=== PATIENT | female | born 1985 | race Hispanic/Latino ===

== ENCOUNTER 2018-04-22 08:38 | Emergency (ER) | payer SELFPAY ==
[2018-04-22 09:29] LABS: #Eosinphils 0.2 thou/uL (0.0-0.7); #Lymphocytes 1.5 thou/uL (1.20-3.40); #Monocytes 0.4 thou/uL (0.11-0.59); #Neutrophils 7.3 thou/uL (1.40-6.50); %Basophils 0.3 % (0.0-1.0); %Lymphocytes 16.2 % (21.0-51.0); %Monocytes 4.5 % (0.0-10.0); Hemoglobin 12.6 g/dL (12.0-16.0); Mean Corpuscular HGB CONC 34.4 g/dL (32.0-36.0); Mean Corpuscular Hemoglobin 31.7 pg (27.0-31.0); Mean Corpuscular Volume 92.4 fL (78.0-98.0); Mean Platelet Volume 7.8 fL (7.4-10.4); Platelet Count 274 thou/uL (130-400); RBC Distribution Width 11.5 % (11.5-14.5); Red Blood Cell (RBC) Count 3.97 mill/uL (4.20-5.40); White Blood Cell (WBC) Count 9.5 thou/uL (4.8-10.8)
[2018-04-22 09:47] LABS: Bilirubin Negative (Negative); Blood, Urine Small (Negative); Clarity CLEAR (Clear); Glucose, Urine (Dipstick) Negative (Negative); Leukocyte Negative (Negative); Nitrite Negative (Negative); Protein, Urine (Dipstick) Negative (Neg-Trace); Specific Gravity, Urine 1.004 (1.002-1.036); Urobilinogen 0.2 mg/dL (0.2-1.0)
[2018-04-22 09:50] LABS: Bacteria/HPF Rare-Few HPF (None Seen); Hyaline Casts/LPF 0-3 HYALINE CAST LPF (0-3 Hyaline); Pathc Cast-AUWi Flag 0.43 (0-2.49); RBC/HPF 0-3 HPF (0-3); Squamous Epithelial 0-3 HPF (0-3); WBC/HPF 0-3 HPF (0-3)
--- NOTE | 2018-04-22 11:38 | ULT ---
FIRST TRIMESTER OBSTETRIC ULTRASOUND: INDICATIONS: History of vaginal bleeding with a 6 to 8 week . COMPARISON: None. TECHNIQUE: Ellis-scale, color Doppler, M-mode, and spectral Doppler images were obtained of the pelvis. FINDINGS: The uterus measures 10.9 x 8.3 cm. There is a single live intrauterine gestation with a crown-rump length of 1.79 cm, giving an estimate d gestational age of 8 weeks 2 days. Yolk sac is identified, measuring 2.9 mm. Cardiac activity is noted, at 179 beats per minute. The average gestational age, based on biometrics, is 9 weeks 1 day with an estimated due date i s 11/24/2018. Clinical age is 10 weeks 1 day with an estimated due date of 11/17/2018. The right ovary measures 2.9 x 1.8 x 2.4 cm. The left ovary measures 2.6 x 1.4 x 1.8 cm. There is n ormal flow to both ovaries. No free fluid is evident. No star-gestational sac hemorrhage is evident . A small cyst is seen within the right ovary, measuring 1.2 cm. IMPRESSION: 1. Single live intrauterine gestation with size and dates as above. 2. Small cyst within the right ovary may reflect a corpus luteal cyst. POS: [facility]
== END 2018-04-22 10:25 | disposition home or self-care (01) ==
LOC: ERS 08:38
DX: O20.0 Threatened abortion (principal); Z3A.10 10 weeks gestation of pregnancy
CPT/HCPCS: 36415; 76856; 81003; 81015; 84702; 85025; 86900; 86901; 93976

== ENCOUNTER 2018-04-25 10:27 | Emergency (ER) | payer SELFPAY ==
[2018-04-25 13:43] LABS: #Eosinphils 0.2 thou/uL (0.0-0.7); #Lymphocytes 1.7 thou/uL (1.20-3.40); #Monocytes 0.4 thou/uL (0.11-0.59); #Neutrophils 5.9 thou/uL (1.40-6.50); %Basophils 0.5 % (0.0-1.0); %Lymphocytes 20.6 % (21.0-51.0); %Monocytes 4.6 % (0.0-10.0); %Neutrophils 72.4 % (42.0-75.0); Hemoglobin 12.1 g/dL (12.0-16.0); Mean Corpuscular HGB CONC 35.6 g/dL (32.0-36.0); Mean Corpuscular Volume 92.9 fL (78.0-98.0); Mean Platelet Volume 8.1 fL (7.4-10.4); Platelet Count 259 thou/uL (130-400); RBC Distribution Width 11.5 % (11.5-14.5); Red Blood Cell (RBC) Count 3.66 mill/uL (4.20-5.40); White Blood Cell (WBC) Count 8.1 thou/uL (4.8-10.8)
[2018-04-25] MEDS ORDERED: Acetaminophen 500 MG TAB ONE (13:50)
[2018-04-25] MEDS ORDERED: Metoclopramide 10 MG/10 ML UDCUP ONE (13:50)
[2018-04-25] MEDS ORDERED: Metoclopramide HCl 10 MG/2 ML VIAL ONE (13:51)
[2018-04-25 14:31] LABS: ALT (SGPT) 16 U/L (8-55); AST (SGOT) 17 U/L (5-34); Albumin 3.6 g/dL (3.5-5.0); Alkaline Phosphatase 58 U/L (40-150); Anion Gap 12 mmol/L (10-20); BUN (Urea Nitrogen) 9 mg/dL (7.0-18.7); Bilirubin, Total 0.3 mg/dL (0.2-1.2); Calc. Creatinine Clearance 0 mL/min (70-130); Carbon Dioxide 22 mmol/L (22-29); Chloride 106 mmol/L (98-107); Estimated GFR-MDRD Greater than 90; Globulin 2.9 g/dL (2.4-3.5); Glucose 112 mg/dL (70-105); Potassium 3.8 mmol/L (3.5-5.1); Protein, Total 6.5 g/dL (6.0-8.3); Sodium 136 mmol/L (136-145)
--- NOTE | 2018-04-25 15:01 | ULT ---
TRANSABDOMINAL AND TRANSVAGINAL PELVIC ULTRASOUND WITH HAMILTON SCALE AND COLOR FLOW AND SPECTRAL DOPPLER IMAGING: Date: 04/25/18 HISTORY: Vaginal bleeding. FINDINGS: The uterus measures 12.4 x 6.7 x 8.5 cm. The right ovary measures 3.3 x 2.3 x 2.4 cm. The left ovary measures 2.9 x 1.1 x 2.2 cm. Flow is demonstrated to both ovaries. There is a 1.[address] in the right ovary. A single, live intrauterine gestation is seen, with measurements corresponding to an estimated gestat ional age of 9 weeks/6 days and UBALDO at 11/22/2018. The crown-rump length measures 2.06 cm and gestati onal sac diameter measures 5.06 cm. heart rate measures 173 beats/minute. Yolk sac is not visua lized. No subchorionic hemorrhage is seen. No free fluid is noted in the pelvis. IMPRESSION: Single, live intrauterine of 9 weeks/6 days estimated gestational age and UBALDO at 11/22/2018 . POS: [facility]
--- NOTE | 2018-04-25 15:04 | CT ---
CT BRAIN WITHOUT CONTRAST: Date: 04/25/18 HISTORY: Headache. FINDINGS: No evidence of infarct, hemorrhage, midline shift, or abnormal extra-axial fluid collections are seen . The ventricular size is normal and the basilar cisterns are patent. The bony calvarium is intact. T here is mild mucosal disease in the left sphenoid sinus. IMPRESSION: No CT evidence of acute intracranial process. POS: [facility]
== END 2018-04-25 15:37 | disposition home or self-care (01) ==
LOC: ERS 10:27
DX: O20.0 Threatened abortion (principal); O99.89 Other specified diseases and conditions complicating pregnancy, childbirth and the puerperium; R51 Headache; Z3A.10 10 weeks gestation of pregnancy
CPT/HCPCS: 36415; 70450; 76856; 80053; 84702; 85025; 93976; 96365; J2765

== ENCOUNTER 2018-09-15 13:53 | Outpatient (CLI) | payer OTHER ==
--- NOTE | 2018-09-15 14:34 | ULT ---
EXAM: OB ultrasound COMPARISON: 08/20/2018 HISTORY: female. Evaluate size, dates, and anatomy. TECHNIQUE: Multiplanar grayscale and color Doppler transabdominal sonographic images are obtained. FINDINGS: There is a single intrauterine gestation in breech presentation. Cardiac Doppler demonstrat es heart tones with a heart rate of 144 beats per minute. The placenta is located anteriorly without evidence of placenta previa. Small hypoechoic area is seen within the central aspe ct body the placenta likely related to either a venous pascual or fibrin deposition. There is a normal amount of amniotic fluid with an amniotic fluid index of 13.7 centimeters. The cervical length based on transabdominal imaging measures 2.7 centimeters. biometry measurements: BPD 7.74 cm -- 31 weeks 1 day HC 28.88 cm -- 31 weeks 6 days AC 25.85 cm -- 30 weeks 1 day FL 5.8 cm -- 30 weeks 3 days The estimated gestational age by ultrasound is 31 weeks with an UBALDO on11/17/2018. Gestational age by t he last menstrual period is 30 weeks. The estimated weight by ultrasound is 1560 g (3 pounds, 7 ounces). This represents 50th percent ile for weight. This exam was not performed for evaluation of anatomical structures, but no definite anom alies are seen. IMPRESSION: 1. Single intrauterine gestation in breech presentation with heart tones documented. Estimated gestational age by ultrasound is 31 weeks. 2. Estimated weight is 1560 g per densities 3 pounds, 7 ounces). 3. Amniotic fluid index is 13.7 centimeters.
== END 2018-09-15 13:54 | disposition home or self-care (01) ==
LOC: BICULT 13:53
PROVIDERS: ATTEND Nurse Practitioner
DX: O26.843 Uterine size-date discrepancy, third trimester (principal); Z3A.31 31 weeks gestation of pregnancy
CPT/HCPCS: 76815

== ENCOUNTER 2018-10-01 22:23 | Inpatient (IN) | payer MEDICAID, OTHER, SELFPAY ==
[2018-10-01 23:21] LABS: Amnisure Test RUPTURE DETECTED (No Rupture)
[2018-10-01 23:22] LABS: Amnisure Internal Control QC ACCEPTABLE (ACCEPTABLE)
[2018-10-01 23:38] VITALS: BMI 27.6
[2018-10-01] MEDS ORDERED: Zolpidem Tartrate 5 MG TAB PO PRN (23:49)
[2018-10-01] MEDS ORDERED: NS / Oxytocin 40 units/1000ml 1,000 ML IV PRN (23:49)
[2018-10-01] MEDS ORDERED: Butorphanol Tartrate 1 MG/ML VIAL SLOW IVP PRN (23:49)
[2018-10-01] MEDS ORDERED: Ondansetron PF 4 MG/2 ML Vial IVP PRN (23:49)
[2018-10-01] MEDS ORDERED: Lidocaine 1% (PF) 30 ML VIAL SC PRN (23:49)
[2018-10-01] MEDS ORDERED: Promethazine HCl 25 MG/ML VIAL IM PRN (23:49)
[2018-10-01] MEDS ORDERED: Ampicillin 2 GM in Sodium Chloride 0.9% 100 ML IVPB SCH (23:59)
[2018-10-02] MEDS ORDERED: Azithromycin 500 MG in Sodium Chloride 0.9% 250 ML 250 ML IVPB SCH (00:15)
[2018-10-02] MEDS: Betamet Acet/Betamet Na Ph 30 MG/5 ML VIAL IM SCH (00:22)
[2018-10-02 00:35] LABS: Hemoglobin 10.9 g/dL (12.0-16.0); Mean Corpuscular HGB CONC 33.5 g/dL (32.0-36.0); Mean Corpuscular Hemoglobin 31.9 pg (27.0-31.0); Mean Corpuscular Volume 95.2 fL (78.0-98.0); Mean Platelet Volume 7.9 fL (7.4-10.4); Platelet Count 268 thou/uL (130-400); RBC Distribution Width 12.4 % (11.5-14.5); Red Blood Cell (RBC) Count 3.41 mill/uL (4.20-5.40)
[2018-10-02] MEDS: Lactated Ringer's 1,000 ML IV SCH ×2 (00:51→08:59)
[2018-10-02 01:11] LABS: HBSAg Index 0.29 S/CO (0-0.99); Hep B Surf Ag Non-Reactive S/CO (NonReactive)
[2018-10-02] MEDS: Ampicillin 2 GM in Sodium Chloride 0.9% 100 ML IVPB SCH ×4 (02:17→20:13)
[2018-10-02 04:12] LABS: Syphilis Antibody Nonreactive (Nonreactive); Syphilis Antibody Index 0.05 S/CO (<1.00 Non-Reactive)
--- NOTE | 2018-10-02 08:07 | ULT ---
Complete obstetrical ultrasound INDICATION: Spontaneous rupture of membranes at 32 weeks TECHNIQUE: Grayscale, M-mode Doppler and Doppler images were obtained of the abdomen and pelvis to ev aluate the patient's known . COMPARISON: Prior exam dated September 15, 2018 FINDINGS: Number of gestations: Single. Presentation: Cephalic. Placental location: Anterior Previa: No evidence for previa. Cervical length: 4.7 TAYLER: 5.8 cm. heart rate: 144 bpm. Biparietal diameter: 8.11cm, 32 weeks 4 days, 47th percentile. Head circumference: 20.96 cm, 31 weeks 6 days, 7th percentile Abdominal circumference: 26.61 cm, 30 weeks 5 days, 9th percentile Femoral length: 6.05cm, 31 weeks 3 days, 15th percentile Estimated weight: 1722 g +/- 255g 3 lbs. 13 oz. +/- 9 ounces, 11th percentile SURVEY: The visualized head and stomach appeared within normal limits. The average gestational age by ultrasound is 31 weeks 5 dayswith estimated due date of November 29, 2018. The estimated dates by clinical data is 32 weeks 3 dayswith estimated due date of November 24, 2018. IMPRESSION: 1. Single live intrauterine gestation with size and dates as above. 2. Oligohydramnios 3. Continued sonographic follow-up is recommended.
--- NOTE | 2018-10-02 08:16 | HP ---
REGULAR PHYSICIAN: Debo Roman MD CHIEF COMPLAINT: Loss of fluid at home since 9 p.m. HISTORY OF PRESENT ILLNESS: Ms. Manuelito Winter is a 33-year-old G4, P3, with an estimated date of confinement of 11/24/2018, who presents complaining of leakage of fluid at home since 9 p.m. She denies associated contractions or vaginal bleeding. Her care has been with Dr. Debo Roman at [facility]. She denies significant complications. The history is obtained through her daughter. PAST OBSTETRICAL HISTORY: Includes vaginal delivery at term x3. PAST MEDICAL HISTORY: None. PAST SURGICAL HISTORY: None. CURRENT MEDICATIONS: vitamins. ALLERGIES: NO KNOWN ALLERGIES. SOCIAL HISTORY: Denies tobacco, alcohol, or drug use. FAMILY HISTORY: Unremarkable. REVIEW OF SYSTEMS: She denies nausea, vomiting, fever, chills, decreased movement, or vaginal bleeding. PHYSICAL EXAMINATION: VITAL SIGNS: Stable and she is afebrile in Triage. GENERAL: She is pleasant. She has no complaints. CHEST: Clear to auscultation. CARDIOVASCULAR: Regular rate and rhythm. ABDOMEN: Soft, nontender, and gravid. PELVIC: 3, 80, -1, with a vertex presenting. No uterine contractions were seen. heart rate tracing is stable. DIAGNOSTIC STUDIES: AmniSure returns positive. ASSESSMENT: 1. 32 and 2/7th week intrauterine . 2. Suspected ruptured membranes. PLAN: The patient will be admitted. Dr. Roman was notified. Steroids have been ordered, and she has also been written for antibiotics. She will be expectantly managed at this time. Job ID: [id number]
[2018-10-03] MEDS: Betamet Acet/Betamet Na Ph 30 MG/5 ML VIAL IM SCH (00:05)
[2018-10-03] MEDS: Lactated Ringer's 1,000 ML IV SCH ×2 (00:59→05:00)
[2018-10-03] MEDS: Ampicillin 2 GM in Sodium Chloride 0.9% 100 ML IVPB SCH ×3 (02:41→21:50)
[2018-10-03 06:28] LABS: #Lymphocytes 1.3 thou/uL (1.20-3.40); #Monocytes 0.2 thou/uL (0.11-0.59); #Neutrophils 10.3 thou/uL (1.40-6.50); %Basophils 0.1 % (0.0-1.0); %Lymphocytes 11.2 % (21.0-51.0); %Monocytes 1.4 % (0.0-10.0); %Neutrophils 87.3 % (42.0-75.0); Hemoglobin 10.4 g/dL (12.0-16.0); Mean Corpuscular HGB CONC 33.3 g/dL (32.0-36.0); Mean Corpuscular Hemoglobin 31.9 pg (27.0-31.0); Mean Corpuscular Volume 95.7 fL (78.0-98.0); Mean Platelet Volume 7.6 fL (7.4-10.4); Platelet Count 250 thou/uL (130-400); RBC Distribution Width 12.5 % (11.5-14.5); Red Blood Cell (RBC) Count 3.26 mill/uL (4.20-5.40); White Blood Cell (WBC) Count 11.8 thou/uL (4.8-10.8)
[2018-10-03] MEDS: Azithromycin 250 MG TAB PO SCH (08:45)
--- NOTE | 2018-10-04 00:23 | PDOC.EVN ---
Event Note - Event Note Event Note: 32 4/7 weeks with PROM. Resting w/o complaints. Temp to 110.1 at 9p, unclear if this was after eating. Temp now is 99.0 with pulse of 76. FHts are reassuring with + accels. Steroids have been given, currently on Amoxicillin po and Zmax. Plan; Watch closely, will deliver for chorioamnionitis.
[2018-10-04] MEDS: Ampicillin 2 GM in Sodium Chloride 0.9% 100 ML IVPB SCH ×2 (03:24→08:41)
[2018-10-04] MEDS: Lactated Ringer's 1,000 ML IV SCH ×5 (03:24→23:16)
[2018-10-04] MEDS: AMOXicillin 250 MG CAP PO SCH ×3 (09:44→21:03)
[2018-10-04] MEDS: Azithromycin 250 MG TAB PO SCH (09:44)
[2018-10-05] MEDS: Lactated Ringer's 1,000 ML IV SCH ×3 (04:49→18:27)
[2018-10-05 07:26] LABS: #Eosinphils 0.1 thou/uL (0.0-0.7); #Lymphocytes 2.7 thou/uL (1.20-3.40); #Monocytes 0.7 thou/uL (0.11-0.59); #Neutrophils 6.1 thou/uL (1.40-6.50); %Basophils 0.3 % (0.0-1.0); %Eosinophils 0.6 % (0.0-10.0); %Lymphocytes 28.3 % (21.0-51.0); %Monocytes 7.1 % (0.0-10.0); %Neutrophils 63.8 % (42.0-75.0); Hemoglobin 10.5 g/dL (12.0-16.0); Mean Corpuscular Hemoglobin 32.3 pg (27.0-31.0); Mean Corpuscular Volume 94.9 fL (78.0-98.0); Mean Platelet Volume 7.4 fL (7.4-10.4); Platelet Count 244 thou/uL (130-400); RBC Distribution Width 12.5 % (11.5-14.5); Red Blood Cell (RBC) Count 3.25 mill/uL (4.20-5.40); White Blood Cell (WBC) Count 9.5 thou/uL (4.8-10.8)
[2018-10-05] MEDS: AMOXicillin 250 MG CAP PO SCH ×3 (09:18→21:09)
[2018-10-05] MEDS: Azithromycin 250 MG TAB PO SCH (09:18)
--- NOTE | 2018-10-05 09:29 | PRG ---
DATE OF SERVICE: 10/05/2018 SUBJECTIVE: The patient is a 33-year-old female with an intrauterine at 32 weeks and 5 days, admitted for premature rupture of membranes. The patient is on oral antibiotics, amoxicillin and azithromycin, as erythromycin is unavailable. The patient reports she is tolerating p.o., voiding on her own, having no pain right now and no contractions. OBJECTIVE: GENERAL: Blood pressure is 108/52, heart rate is 79, respiratory rate of 18, temperature 99.1. GENERAL: She appears to be in no acute distress. She is alert, oriented, cooperative, and pleasant to interact with. HEENT: Head is normocephalic and atraumatic. ABDOMEN: Soft. EXTREMITIES: Nontender, nonedematous. HEART TRACING: Demonstrates the fetus with a baseline in the 150s with moderate long-term variability, positive 15 x 15 accelerations, no decelerations. With tocometer, it does not show any contractions. LABORATORY DATA: Shows a white count of 9.5, hemoglobin of 10.5, hematocrit of 30.9, and platelets of 244,000. ASSESSMENT AND PLAN: The patient is hospital day 4 with an intrauterine at 32 weeks and 6 days, diagnosed with premature rupture of membranes, now on oral antibiotics, status post betamethasone x2. The patient has no evidence of abruption, chorioamnionitis, or labor at this time. Fetus who is reassuring with a category 1 tracing and reactive NST. We will continue expectant management until 34 weeks or until signs of abruption, chorioamnionitis or labor. Dr. Debo Roman will be assuming care again tomorrow. Job ID: [id number]
[2018-10-06] MEDS: AMOXicillin 250 MG CAP PO SCH ×3 (09:46→21:36)
[2018-10-06] MEDS: Azithromycin 250 MG TAB PO SCH (09:46)
[2018-10-06] MEDS: Lactated Ringer's 1,000 ML IV SCH (23:00)
[2018-10-07] MEDS: Azithromycin 250 MG TAB PO SCH (09:17)
[2018-10-07] MEDS: Prenatal Vitamin 1 TAB PO SCH (09:17)
[2018-10-07] MEDS: AMOXicillin 250 MG CAP PO SCH ×3 (09:17→20:52)
[2018-10-08] MEDS: AMOXicillin 250 MG CAP PO SCH ×3 (08:06→21:15)
[2018-10-08] MEDS: Azithromycin 250 MG TAB PO SCH (08:07)
[2018-10-08] MEDS: Prenatal Vitamin 1 TAB PO SCH (08:07)
[2018-10-08] MEDS: Acetaminophen 500 MG TAB PO PRN (21:19)
[2018-10-09] MEDS: Azithromycin 250 MG TAB PO SCH (09:47)
[2018-10-09] MEDS: Prenatal Vitamin 1 TAB PO SCH (09:47)
[2018-10-09] MEDS: AMOXicillin 250 MG CAP PO SCH (09:47)
--- NOTE | 2018-10-10 07:45 | ULT ---
US Biophysical Profile History: [ premature rupture of membranes at 32 weeks] Comparison: Ultrasound October 02, 2018 Findings: Real-time grayscale and color evaluation of the gravid uterus was performed. The biophysical profile score is 8/8. The heart rate documented at 144 bpm. position is vertex and the placenta is anterior. Total amniotic fluid index is 6.3. Impression: Biophysical profile score 8/8. Low amniotic fluid of 6.3 cm.
[2018-10-10] MEDS: Prenatal Vitamin 1 TAB PO SCH (09:41)
[2018-10-10] MEDS: Azithromycin 250 MG TAB PO SCH (09:41)
[2018-10-11] MEDS: Acetaminophen 500 MG TAB PO PRN (03:35)
[2018-10-11 06:05] LABS: #Basophils 0.1 thou/uL (0.0-0.2); #Eosinphils 0.1 thou/uL (0.0-0.7); #Lymphocytes 2.5 thou/uL (1.20-3.40); #Monocytes 0.6 thou/uL (0.11-0.59); #Neutrophils 6.4 thou/uL (1.40-6.50); %Basophils 0.6 % (0.0-1.0); %Eosinophils 1.4 % (0.0-10.0); %Lymphocytes 25.8 % (21.0-51.0); %Neutrophils 66.2 % (42.0-75.0); Hemoglobin 10.5 g/dL (12.0-16.0); Mean Corpuscular HGB CONC 34.4 g/dL (32.0-36.0); Mean Corpuscular Volume 92.9 fL (78.0-98.0); Mean Platelet Volume 7.5 fL (7.4-10.4); Platelet Count 244 thou/uL (130-400); White Blood Cell (WBC) Count 9.6 thou/uL (4.8-10.8)
[2018-10-11] MEDS: Prenatal Vitamin 1 TAB PO SCH (10:23)
--- NOTE | 2018-10-11 17:38 | PDOC.EVN ---
Event Note - Event Note Event Note: Asked to round today by Dr. Roman. 33 5/7 weeks, PROM, s/p steroids and ABX. No c/o today. VSS AF. Abd- NT. NST from earlier showed variable decel. Placed back on monitor this PM; Fhts are reassuring with no decels seen. BPP yesterday was 8/8 with TAYLER of 6+. Plan: Cont. expectant mgmt, pt. is scheduled for induction next week at 34 weeks.
[2018-10-12] MEDS ORDERED: Fentanyl 100 MCG/2 ML VIAL ONE (02:31)
[2018-10-12] MEDS ORDERED: CEFAZOLIN 1 GM VIAL ONE (02:38)
[2018-10-12] MEDS ORDERED: Ondansetron PF 4 MG/2 ML Vial ONE (02:42)
[2018-10-12] MEDS ORDERED: L&D-Morphine 4 MG/ML VIAL SLOW IVP PRN (02:43)
[2018-10-12] MEDS ORDERED: Naloxone HCl 0.4 mg/ml Vial IV PRN (02:43)
[2018-10-12] MEDS ORDERED: Meperidine HCl/PF 25 MG/ML VIAL SLOW IVP PRN (02:43)
[2018-10-12] MEDS ORDERED: Ondansetron HCl/PF 4 MG/2 ML Vial IVP PRN (02:43)
[2018-10-12] MEDS ORDERED: Morphine CADD 1 MG/ML CADD IVPB PRN (02:43)
[2018-10-12] MEDS ORDERED: diphenhydrAMINE 25 MG CAP PO PRN (02:43)
[2018-10-12] MEDS ORDERED: diphenhydrAMINE 50 MG/ML VIAL IVP PRN (02:43)
[2018-10-12] MEDS ORDERED: Zolpidem Tartrate 5 MG TAB PO PRN (02:43)
[2018-10-12] MEDS ORDERED: Promethazine HCl 25 MG/ML VIAL IM PRN (02:43)
[2018-10-12] MEDS ORDERED: diphenhydrAMINE 50 MG/ML VIAL IM PRN (02:43)
[2018-10-12] MEDS ORDERED: Ondansetron PF 4 MG/2 ML Vial IVP PRN ×2 (02:43→03:58)
[2018-10-12] MEDS ORDERED: HYDROmorphone 2 MG/ML VIAL SLOW IVP PRN (02:43)
[2018-10-12] MEDS ORDERED: Ketorolac Tromethamine 30 MG/ML VIAL IVP SCH ×2 (02:45→06:00)
[2018-10-12] MEDS ORDERED: Communication Order-Pharmacy FS SCH (02:45)
[2018-10-12 02:59] LABS: Actual Bicarbonate (HCO3a) 26.5 mEq/L (22-28); Base Excess (BEa) -4.2 mEq/L (-2.0 to +3.0)
[2018-10-12 03:02] LABS: Actual Bicarbonate (HCO3v) 25 mEq/L (22-28); Base Excess -2.9 mEq/L (-2.0 to +3.0); pH (Cord, venous) 7.28 (7.32-7.43)
[2018-10-12] MEDS ORDERED: Oxytocin 10 UNITS/ML VIAL ONE ×2 (03:10→11:00)
[2018-10-12] MEDS ORDERED: Ketorolac Tromethamine 30 MG/ML VIAL ONE ×2 (03:22→12:06)
[2018-10-12] MEDS ORDERED: HYDROcodone/Acetaminophen 5/325 mg Tablet PO PRN ×4 (03:58→04:09)
[2018-10-12] MEDS ORDERED: Simethicone Chewable 80 MG TAB PO PRN (03:58)
[2018-10-12] MEDS ORDERED: Lanolin Ointment 7 GM TUBE TOP PRN (03:58)
[2018-10-12] MEDS ORDERED: NS / Oxytocin 40 units/1000ml 1,000 ML IV SCH (04:00)
--- NOTE | 2018-10-12 04:17 | OP ---
DATE OF PROCEDURE: 10/12/2018 PREOPERATIVE DIAGNOSES: 1. 33 and 6/7th weeks. 2. Prolapsed cord. POSTOPERATIVE DIAGNOSES: 1. 33 and 6/7th weeks. 2. Prolapsed cord. PROCEDURE PERFORMED: STAT Primary low-segment transverse section via Pfannenstiel incision SURGEON: Fabrizio Lopez MD PLEXIGLAS FORMER SURGEON: Oanh Kern MD FINDINGS: 1. A viable male infant, weight 4 pounds 10 ounces, found in the cephalic presentation with Apgars of 5 and 8. 2. Normal uterus, tubes, and ovaries bilaterally. 3. Arterial cord pH of 7.16. ANESTHESIA: General endotracheal. ESTIMATED BLOOD LOSS: 800 mL with QBL pending. COMPLICATIONS: None. INDICATIONS FOR PROCEDURE: Ms. Billings is a 33-year-old , multigravida, who had premature rupture of the membranes and is now at 33 and 6/7th weeks. She had been brought to Labor and Delivery and was found to have a prolapsed cord. I was notified, and the patient was quickly taken to the operating room. DESCRIPTION OF PROCEDURE: The patient was rapidly prepped and draped and then was given general endotracheal anesthesia. A transverse incision was made two fingerbreadths above the symphysis pubis and the abdomen was quickly opened in layers. The uterus was identified and a transverse incision was made across the lower uterine segment, which was poorly formed. The fetus was found in the cephalic presentation and was delivered. The cord was clamped and cut. The baby was then taken to the awaiting team for evaluation. The placenta was manually removed and then the inside of the uterus was curetted using a dry lap. Closure of the uterine incision was carried out using a running locking suture of #[address] Debo Roman arrived after the uterus was closed and the case was turned over to her to complete the uterine closure and to also close the abdomen. Job ID: [id number] [facility]
[2018-10-12] MEDS ORDERED: Morphine Sulfate 100 MG in Dextrose 5% in Water 98 ML IV PRN (04:36)
--- NOTE | 2018-10-12 05:54 | OP ---
DATE OF PROCEDURE: 10/12/2018 PREOPERATIVE DIAGNOSES: 1. A 33-year-old female, G4, P4, at 33 weeks and 5 days with premature rupture of membranes since 32 weeks. 2. Group B Streptococcus negative. 3. Status post latency antibiotics. 4. Status post betamethasone x2 for prematurity. 5. Prolapsed umbilical cord noted rapidly and emergency delivery. ANESTHESIA: General. PROCEDURE: Emergency primary section. ESTIMATED BLOOD LOSS: 585 mL. Surgery was taken over by primary OB, Dr. Debo Roman. CLINICAL HISTORY: This patient is a 33-year-old female, who originally presented on 10/01/2018 for the complaint of leakage of fluid at 32 weeks and 4 days. The patient felt a gush and came to Labor and Delivery. She was evaluated by the labors director hospice operations and was noted to have a positive exam for amniotic fluid. She was afebrile at that time and was 3 cm, 50% effaced, and -2 station. She had a history of 3 previous vaginal deliveries at term with the last 1 was large for gestational age, baby weighing 9 pounds and 8 ounces with normal Glucola this . The patient was managed by conservative management. She was placed on latency antibiotics with completion of an entire week with full coverage for GBS. GBS swab was taken and was noted to be negative in the subsequent days. The patient also received betamethasone x2 for lung maturity. She was not hilario at the time and had a category I tracing and was managed on Labor and Delivery for a couple of days and then transferred over to the area for continued monitoring by NST and BPP. The patient had a BPP the day prior that was 8/8 and then NST that was reactive. On the day of the procedure, she had just finished her q.shift NST and was noted to have some variables, but overall reassuring tracing. She was transferred over to the Labor and Delivery unit in preparation for her expected delivery at 34 weeks. It was shortly after transfer that the patient recognized and called out for assistance for something protruding from her vagina. Per nursing report, there was a cord noted and immediate call for transfer to the operating room, as well as support for the baby ensued. Details of the procedure from here forward were dictated by Dr. Fabrizio Lopez with the primary OB arriving at the time of delivery for the baby. The primary surgeon, Dr. Lopez closed the uterus with assistance by Dr. Roman and then after hemostasis was noted, Dr. Roman took over for the remainder of the surgery and is dictated as follows. DETAILS OF THE PROCEDURE: The uterus was hemostatic after the closure by Dr. Lopez. Second imbricating layer was performed with a chromic suture with excellent hemostasis. The left corner had a noted small hematoma that was not expanding and was controlled by a [id number] suture with excellent hemostasis. An irrigation of the posterior cul-de-sac was performed with evacuation of any collected blood and the anterior surface of the uterus was evaluated and noted to be hemostatic. The bladder flap was then reapproximated with a 3-0 Monocryl and Seprafilm was placed over the anterior surface of the uterus. The uterus was then placed back into the abdomen and the peritoneum was closed in a running fashion with 2-0 Monocryl. The rectus and pyramidalis muscles were then reapproximated with [id number] sutures and the prefascial gutters were cleansed of all debris. The fascia was then closed with a 0-Vicryl. The subcutaneous tissue was irrigated copiously and bleeding was stopped with Bovie cautery. A 2-0 plain gut interrupted sutures were used to reapproximate the subcutaneous tissues and 3-0 Vu needle was used to close the incision. The incision was then reinforced with Steri-Strips and Mastisol and a pressure dressing with Tegaderm, Telfa, and 4x4s was placed over the incision. The patient tolerated the procedure well. The report from the nursery was received with a live born male with Apgars of 5 and 8 at 1 and 5 minutes respectively, weighing 4 pounds and 10 ounces. The cord gas was obtained, was 7.1 with a base excess of -2.9. All needle, sponge, lap, and instrument counts were correct x2 at the end of the procedure and given the emergency nature of the procedure, an x-ray was performed, which was visualized by Dr. Roman and noted to be free of any retained sponge, needles, or instruments. There were no other issues surrounding this delivery. The patient was sent to the recovery room in satisfactory condition to continue to recover from anesthesia. Job ID: [id number] [facility] [place]
--- NOTE | 2018-10-12 08:44 | RAD ---
SUPINE ABDOMEN: HISTORY: STAT . Assess for needle and lab count. FINDINGS/IMPRESSION: Bowel gas pattern unremarkable. Extraneous density overlies the right upper abdomen. No other evide nce of radiopaque foreign body. POS: [facility]
[2018-10-12] MEDS ORDERED: Adacel (T-DAP) 0.5 ML SYRINGE IM ONE (09:00)
[2018-10-12] MEDS ORDERED: Measles/Mumps/Rubella 10 MCG/0.5 ML VIAL SC ONE (09:00)
[2018-10-12] MEDS: Prenatal Vitamin 1 TAB PO SCH (09:30)
[2018-10-12] MEDS: Ferrous Sulfate 325 MG TAB PO SCH ×2 (10:29→18:17)
[2018-10-12] MEDS: Docusate Calcium (SURFAK) 240 MG CAP PO SCH ×2 (10:35→21:17)
[2018-10-12] MEDS: Ketorolac Tromethamine 30 MG/ML VIAL IVP SCH ×3 (10:38→21:16)
[2018-10-12] MEDS ORDERED: Succinylcholine Chloride 20 MG/ML 10 ml SYRINGE FS ONE (12:06)
[2018-10-12] MEDS ORDERED: PROPOFOL 200 MG/20 ML VIAL ONE (12:06)
[2018-10-13] MEDS: Ketorolac Tromethamine 30 MG/ML VIAL IVP SCH ×2 (02:57→08:30)
[2018-10-13 06:51] LABS: Hemoglobin 9.3 g/dL (12.0-16.0); Mean Corpuscular HGB CONC 33.5 g/dL (32.0-36.0); Mean Corpuscular Hemoglobin 32.4 pg (27.0-31.0); Mean Corpuscular Volume 96.8 fL (78.0-98.0); Mean Platelet Volume 7.6 fL (7.4-10.4); Platelet Count 222 thou/uL (130-400); RBC Distribution Width 12.5 % (11.5-14.5); Red Blood Cell (RBC) Count 2.88 mill/uL (4.20-5.40); White Blood Cell (WBC) Count 9.9 thou/uL (4.8-10.8)
[2018-10-13] MEDS: Ferrous Sulfate 325 MG TAB PO SCH ×2 (08:28→15:45)
[2018-10-13] MEDS: Docusate Calcium (SURFAK) 240 MG CAP PO SCH ×2 (08:28→21:34)
[2018-10-13] MEDS: Prenatal Vitamin 1 TAB PO SCH (08:28)
[2018-10-13] MEDS: Ibuprofen 800 MG TAB PO SCH ×2 (15:43→21:34)
[2018-10-14] MEDS: Ibuprofen 800 MG TAB PO SCH ×3 (05:03→21:49)
[2018-10-14] MEDS: Ferrous Sulfate 325 MG TAB PO SCH ×2 (11:51→21:49)
[2018-10-14] MEDS: Prenatal Vitamin 1 TAB PO SCH (11:51)
[2018-10-14] MEDS: Docusate Calcium (SURFAK) 240 MG CAP PO SCH ×2 (11:51→21:49)
[2018-10-14] MEDS ORDERED: Ibuprofen 800 MG TAB PO SCH (14:00)
[2018-10-14 20:10] VITALS: TEMP 98.6
[2018-10-15] MEDS: Ibuprofen 800 MG TAB PO SCH ×2 (05:56→14:32)
[2018-10-15] MEDS: Ferrous Sulfate 325 MG TAB PO SCH ×2 (08:49→16:39)
[2018-10-15] MEDS: Docusate Calcium (SURFAK) 240 MG CAP PO SCH (08:49)
[2018-10-15] MEDS: Prenatal Vitamin 1 TAB PO SCH (08:49)
[2018-10-15 18:38] VITALS: BP 107/53
== END 2018-10-15 18:59 | disposition home or self-care (01) | DRG 788 ==
LOC: L&D/OP 22:23 → L&D 10-02 00:23 → 3SW 10-06 15:38 → L&D 10-12 02:35 → 3SE 10-12 05:39
PROVIDERS: ADMIT Obstetrics & Gynecology; ATTEND Obstetrics & Gynecology
PROC: 10D00Z1 Extraction of Products of Conception, Low, Open Approach (ICD-10-PCS; principal; 2018-10-12)
DX: O42.90 Premature rupture of membranes, unspecified as to length of time between rupture and onset of labor, unspecified weeks of gestation (principal); O69.0XX0 Labor and delivery complicated by prolapse of cord, not applicable or unspecified; Z37.0 Single live birth; Z3A.33 33 weeks gestation of pregnancy
CPT/HCPCS: 36415; 51702; 59025; 74018; 76805; 76819; 82805; 84112; 85025; 85027; 86780; 86850; 86900; 86901; 87081; 87340; 99285; J0290; J0456; J0690; J0702; J1885; J2274; J2405; J2590; J2704; J3010; J3490; J7050; J7070

== ENCOUNTER 2022-10-04 12:05 | Emergency (ER) | payer MEDICAID, OTHER ==
[2022-10-04 13:03] LABS: #Eosinphils 0.2 thou/uL (0.0-0.7); #Monocytes 0.3 thou/uL (0.11-0.59); #Neutrophils 3.7 thou/uL (1.40-6.50); %Basophils 0.5 % (0.0-1.0); %Eosinophils 2.5 % (0.0-10.0); %Lymphocytes 28.4 % (21.0-51.0); %Monocytes 5.3 % (0.0-10.0); Mean Corpuscular Hemoglobin 30.8 pg (27.0-31.0); Mean Corpuscular Volume 93.3 fl (78.0-98.0); Mean Platelet Volume 10.1 fL (7.4-10.4); Platelet Count 239 10x3/uL (130-400); RBC Distribution Width 12.4 % (11.5-14.5); White Blood Cell (WBC) Count 5.9 10x3/uL (4.8-10.8)
[2022-10-04 13:06] LABS: Clarity Hazy (Clear)
[2022-10-04 13:07] LABS: Bilirubin Unable to Interpret (Negative); Blood, Urine Unable to Interpret (Negative); Glucose, Urine (Dipstick) Unable to Interpret mg/dL (Negative); Ketone, Urine Unable to Interpret mg/dL (Negative); Leukocyte Unable to Interpret Leu/uL (Negative); Nitrite Unable to Interpret (Negative); Protein, Urine (Dipstick) Unable to Interpret mg/dL (Neg-Trace); Specific Gravity, Urine 1.014 (1.002-1.036); Urobilinogen UNABLE TO INTERPRET mg/dL (Less than 2); pH, Urine 5.7 (5.0-9.0)
[2022-10-04 13:10] LABS: Bacteria/HPF 3+ HPF (None Seen); RBC/HPF Greater than 50 HPF (0-3)
== END 2022-10-04 16:12 | disposition home or self-care (01) ==
LOC: ERS 12:05
DX: O03.4 Incomplete spontaneous abortion without complication (principal)
CPT/HCPCS: 36415; 76856; 81003; 81015; 84702; 85025; 86900; 86901; 93976